=== PATIENT | female | born 1995 | race Caucasian/White ===

== ENCOUNTER 2016-07-30 14:23 | Emergency (ER) | payer OTHER ==
[~2016-07-30] VITALS: Ht 160 cm; Wt 63.6 kg
[~2016-07-30 14:23] MED LIST: AMOX-366 PO; DOCU-41 PO; FERR-83 PO; HYDR-4003 PO; IBUP-1827 PO; OXYC1TAB24 PO; PNV11TAB5 PO; PNV1TABL66 PO; prenatal ORAL
[2016-07-30 14:30] VITALS: BP 132/86; PULSE 107; RESP 14; O2SAT 100
--- NOTE | 2016-07-30 15:42 | ED.REPORT ---
HPI-Abd Pain F Under 38 Date of Service Jul 30, 2016 ED Provider: Orville Nicole MD This is a 20 year old female with a history of pyelonephritis requiring admission presenting to the emergency department complaining of R flank pain that began 2 days ago. Described as dull and aching that has progressively worsened and radiates to R abdomen. Associated with fever, dysuria, urinary urgency, urinary frequency, diaphoresis, chills, nausea, vomiting, malaise, and headache. One episode emesis today. Presentation is similar to that during previous pyelonephritis. Pt has been taking leftover cephalexin as prescribed during previous admission. Nursing Notes Stated Complaint: POSS KIDNEY INFECTION Chief Complaint: Female Abdominal Pain Nursing Notes Reviewed: Yes ([employer] not reconciled) Allergies: Coded Allergies: No Known Allergies (Verified Allergy, Unknown, 11/11/15) Scheduled ([]) ORAL DAILY Amoxicillin/Clav K 875-125 mg (Augmentin 875-125 mg) 1 Each Tablet 1 TABLET PO BID Amoxicillin/Clav K 875-125 mg (Augmentin 875-125 mg) 1 Each Tablet 1 TABLET PO BID Docusate Sodium (Colace) 100 Mg Capsule 100 MG PO BID Ferrous Sulfate (Ferrous Sulfate) 325 Mg Tablet 325 MG PO DAILY Pnv with Ca,No.72/Iron/FA ( Vitamin with Low Iron) 1 Each Tablet 1 EACH PO Q2DAY Row891/FA/Omega3/Dha/Fish Oil ( Gummies) 400 Mcg-32.5 Mg (25 Mg-7.5 Mg) Tab.chew 1 EACH PO Q2DAY Scheduled PRN Fluconazole (Diflucan) 150 Mg Tablet 150 MG PO ONCE PRN PRN Yeast Infection Take 1 tab after completing all antibiotics Hydrocodone-Acetaminophen 5-325 mg (Hydrocodone-Acetaminophen 5-325 mg) 1 Each Tablet 1 TABLET PO Q4H PRN PRN For Pain Hydrocodone-Acetaminophen 5-325 mg (Hydrocodone-Acetaminophen 5-325 mg) 1 Each Tablet 1 TABLET PO TID PRN PRN For Pain Ibuprofen (Ibuprofen) 600 Mg Tablet 600 MG PO Q6H PRN PRN For Pain Ondansetron ODT (Ondansetron ODT) 8 Mg Tab.rapdis 8 MG PO Q4H PRN PRN For Nausea Phenazopyridine (Phenazopyridine) 200 Mg Tablet 200 MG PO TID PRN PRN dysuria oxyCODONE-Acetaminophen 5-325 mg (oxyCODONE-Acetaminophen 5-325 mg) 1 Each Tablet 1-2 TAB PO Q4H PRN PRN For Pain General Time Seen by MD: 15:41 Chief Complaint Flank pain right Hx Obtained From: Patient Arrived By: Walk-in Sudden in Onset?: Yes Onset Occurred: 2 days ago Symptom Duration: Since onset Severity: Current: Moderate Pertinent Negative: Pt denies other symptoms Recent Healthcare: No recent doctor visit, No recent hospitalization Similar Sx Previous: No Past Medical History Past Medical History G2 Admit for Pylenophretis during a 10/2015 (culture negative) Reports: Depression, Urinary tract infection Past Surgical History None Reports: (x2) Smoking History Former Smoker Social History Other Social History: Good social support Ambulatory Status Independent Review of Systems Constitutional: Reports: Chills, Fever, Malaise GI: Reports: Abdominal pain, Nausea, Vomiting, Denies: Constipation, Diarrhea Female: Reports: Dysuria, Flank pain, Urinary frequency, Urinary urgency Complete sys rev & neg: except as marked. Physical Exam Initial Vital Signs Vital Signs (First) Date Time Temp Pulse Resp B/P Pulse Ox O2 Delivery O2 Flow Rate FiO2 07/30/16 14:30 36.4 107 14 132/86 100 Room Air Initial VS: Reviewed, Vital signs abnormal (mild tachycardia) Head / Eyes: Atraumatic, Normocephalic, PERRL ENT: Mucous membranes moist, Conjunctiva normal, No scleral icterus Neck: Supple, Non-tender, Full range of motion Extremities: Vascular intact, Neuro intact, No swelling, No tenderness Skin: Warm, Dry, No cyanosis Neurologic: Alert, Oriented, Nonfocal Psychiatric: Mood/affect normal, Behavior normal, Normal thought content General/Constitutional: Awake, Alert, No acute distress, Well appearing Respiratory / Chest: Breath sounds NL, Breath sounds = bilat, No respiratory distress, No rales, No rhonchi, No wheezing Cardiovascular: Heart rate NL, Regular rhythm, Heart sounds NL, Peripheral circulation NL Abdomen: McBurney's non-tender, No guarding, No rebound, BS normoactive Tenderness/Guarding/Rebound: Positive: Tender flank R Back: Full range of motion, No midline vertebral tend, No paraspinal tenderness Mild R CVA tenderness Interpretation & Diagnostics Lab Results Interpretation Test 3/1/17 16:00 Urine Color Yellow (YELLOW) Urine Appearance Hazy (CLEAR,HAZY) Urine pH 6.0 (5.0-8.0) Urine Specific [place] 1.020 (1.003-1.035) Urine Protein Tracemg/dL (NEG,TRACE) Urine Glucose (UA) Negativemg/dL (NEGATIVE) Urine Ketones 15mg/dL (NEGATIVE) Urine Occult Blood Negative (NEGATIVE) Urine Nitrite Negative (NEGATIVE) Urine Bilirubin Negative (NEGATIVE) Urine Urobilinogen Normalmg/dL (NORMAL) Urine Leukocyte Esterase Small (NEGATIVE) Urine RBC 0-2/hpf (0-2) Urine WBC 6-10/hpf (0-5) Urine Epithelial Cells Many/hpf (NONE-MOD) Urine Crystals None seen (NONE SEEN) Urine Bacteria Many/hpf (NONE-FEW) Urine Hyaline Casts None/lpf (NONE) Urine Granular Casts None seen (NONE SEEN) Urine Waxy Casts None seen (NONE SEEN) Urine Red Blood Cell Casts None seen (NONE SEEN) Urine White Blood Cell Casts None seen (NONE SEEN) Urine Mucus None seen (None Seen) Urine Trichomonas None seen (NONE SEEN) Urine Yeast None (NONE SEEN) Urinalysis Comment None Urine Culture Reflexed Indicated Lab Results Interpretation: UA is abnormal concerning for infection, reportedly negative-patient had been taking left over antibiotics the past 2 days, culture negative Re-Eval/Medical Decision Med Decision/Clinical Course This is a 20-year-old female who presents with concern that she has pyelonephritis again. She was admitted October of last year for pyelonephritis during . She developed dysuria, and flank pain, then a fever in the past couple days. She had some leftover antibiotics and has been taking that cephalexin. But she still has ongoing pain, dysuria, should the fever yesterday reports the aching is getting worse. She has had some nausea as well. She reports she has had multiple UTIs over the years, and this again is very similar. She is not febrile and apartment, she does not appear toxic, she does have mild right-sided CVA tenderness. Her abdomen is soft and entirely nontender. The patient appears a reasonable For outpatient treatment for probable early pyelonephritis. Her urine does have markers for infection, and this is despite her recent several days of cephalexin. Return for upper tract disease the patient is being transitioned to Augmentin, given current desires to stay away from the fluoroquinolones unless absolutely necessary. After discussion regarding options patient received an IM dose of starting ceftriaxone, is being discharged in a ten-day course of Augmentin, with some when necessary hydrocodone, when necessary ondansetron, and a follow-up dose of Diflucan to take after Avelox are complete. Along with this a prescription for phenazopyridine was given Routine and return precautions were reviewed with the patient. Discharge instructions reviewed. Patient is discharged in good condition. Source of Hx: Old records Differential Diagnosis: Positive: Pyelonephritis, Urinary tract infection, Negative: Abscess, Appendicitis, Bowel obstruction, Ectopic preg ruptured, Ectopic , Esophageal rupture, Peritonitis, Stab wound abdomen Counseled Regarding: Diagnosis, Lab results, Need for follow-up, When/why to return to ED Discharge & Departure Primary Impression: Pyelonephritis Disposition: Home Discharge Condition All VS Reviewed: Yes Condition: Stable Additional Instructions: 1. You received an injection of the antibiotic ceftriaxone. 2. Start the oral antibiotic Augmentin (amoxicillin/clavulanate) tonight. Take 875mg twice a day for 10 days. 3. Continue to drink plenty of fluids. 4. Take ondansetron 8 mg-left is all underneath the tongue-up to every 4 hours if needed for nausea. 5. Take Azo or phenazopyridine 200 mg 3 times a day as needed for painful urination. Note: This medication turned her urine orange. 6. If needed for pain take hydrocodone 5/325 one tab up to 3 times a day. Note: This medication and narcotic causes drowsiness. No driving for at least 4 -6 hours after taking 7. Symptoms are expected to be clearly improving over the next few days. Return if new or worsening symptoms. 8. Follow up with your regular doctor for a recheck of your urine after completing her antibiotics Referrals: Felipa Dumont MD (PCP) Scribe Attestation Portions of this note were transcribed by Tor Javier. I, Dr. Nicole personally performed the history, physical exam and medical decision-making; I reviewed and confirmed the accuracy of the information in the transcribed note. Signed by: damaris Melton. 07/30/2016, 17:00. Orville Nicole MD Jul 30, 2016 15:42 TOR JAVIER Jul 30, 2016 15:51
[2016-07-30] MEDS ORDERED: Phenazopyridine 97.5 mg Tablet PO ONE (15:55)
[2016-07-30] MEDS ORDERED: Ondansetron 8 mg ODT Tablet PO ONE (15:55)
[2016-07-30] MEDS ORDERED: cefTRIAXone Inj 1,000 MG, Lidocaine PF 1% Inj 2.1 ML in Syringe 0 EACH IM ONE (15:55)
[2016-07-30] MEDS ORDERED: HYDR-4003 PO (15:59)
[2016-07-30] MEDS ORDERED: PHEN-777 PO (15:59)
[2016-07-30] MEDS ORDERED: ONDA8TAB10 PO (15:59)
[2016-07-30] MEDS ORDERED: AMOX-366 PO (15:59)
[2016-07-30] MEDS ORDERED: FLUC150T48 PO (16:00)
[2016-07-30 16:24] LABS: APPEARANCE,URINE HAZY (CLEAR,HAZY); COLOR,URINE YELLOW (YELLOW)
[2016-07-30 16:25] LABS: OCCULT BLOOD,URINE NEGATIVE (NEGATIVE); UROBILINOGEN,URINE NORMAL (NORMAL)
[2016-07-30] MEDS ORDERED: HYDROcodone-APAP 5-325 mg Tablet PO ONE (17:10)
[2016-07-30 17:16] VITALS: BP 112/69; PULSE 98; RESP 17; O2SAT 98
== END 2016-07-30 17:18 | disposition home or self-care (01) ==
LOC: SED 14:23
DX: N10 Acute pyelonephritis (principal); Z87.891 Personal history of nicotine dependence; Z87.440 Personal history of urinary (tract) infections
CPT/HCPCS: 81000; 81025; 87086; 96372; 99284; J0696